=== PATIENT | female | born 1960 | race Caucasian/White ===

== ENCOUNTER 2022-08-27 17:11 | Inpatient (IN) | payer MEDICAID ==
[~2022-08-27] VITALS: Ht 157.5 cm; Wt 81.6 kg
[2022-08-27 17:36] VITALS: BP_SYST 146
--- NOTE | 2022-08-27 18:05 | NUR ---
Pt bib daughter from home CC High blood sugar. Pt c/o headache nausea and feeling unwell. Pt is fatigue. Pt denies Vomiting and diarrhea. Respirations even and unlabored. VSS, NAD, aaox4. skin intact. accucheck: HI greater than 600. Notified MD.
--- NOTE | 2022-08-27 18:52 | NUR ---
Collected urine sample and delivered to lab.
[2022-08-27 18:57] LABS: BASOPHILS % (AUTO) 0.3 % (0.0-2.0); EOSINOPHILS % (AUTO) 0.1 % (0.0-4.0); HEMATOCRIT 35.6 % (36-48); LYMPHOCYTES # (AUTO) 0.9 K/uL (1.0-5.5); LYMPHOCYTES % (AUTO) 11.6 % (20.5-51.5); MEAN CORPUSCULAR VOLUME 88 fL (79.0-98.0); MONOCYTES # (AUTO) 0.5 K/uL (0.0-1.0); MONOCYTES % (AUTO) 5.8 % (1.7-9.3); NEUTROPHILS # (AUTO) 6.6 K/uL (1.8-7.7); NEUTROPHILS % (AUTO) 82.2 % (40.0-70.0); PLATELET COUNT (AUTO) 286 K/uL (130-430); RED BLOOD CELL COUNT(AUTO) 4.03 MIL/uL (4.2-6.2); RED CELL DISTRIBUTION WIDTH 15.3 % (9.0-15.0)
[2022-08-27] MEDS ORDERED: NACL 0.9% 1,000 ML IV ONE (19:00)
--- NOTE | 2022-08-27 19:02 | NUR ---
accluiseck 520 Notified
[2022-08-27 19:17] LABS: CREATININE 1.15 mg/dL (0.55-1.30); POTASSIUM 5.4 mmol/L (3.5-5.1)
[2022-08-27 19:18] LABS: BILIRUBIN,URINE NEGATIVE (NEGATIVE); BLOOD, URINE NEGATIVE (NEGATIVE); CLARITY/URINE CLEAR (CLEAR); COLOR,URINE YELLOW (YELLOW); GLUCOSE,URINE 3+ (NEGATIVE); KETONES,URINE TRACE (NEGATIVE); LEUKOCYTE ESTERASE ,URINE NEGATIVE (NEGATIVE); NITRITE, URINE NEGATIVE (NEGATIVE); PROTEIN URINE NEGATIVE (NEGATIVE); UROBILINOGEN,URINE 0.2 (0.2-1.0)
[2022-08-27 19:20] LABS: TOTAL BILIRUBIN 0.4 mg/dL (0.0-1.0)
--- NOTE | 2022-08-27 19:24 | NUR ---
CRITICAL LAB VALUE: blood sugar 666 notified charge nurse Elin.
[2022-08-27] MEDS ORDERED: ACETAMINOPHEN 325 MG TABLET PO ONE (19:30)
[2022-08-27] MEDS ORDERED: NACL 0.9% 2,000 ML IV ONE ×2 (19:30→20:30)
[2022-08-27] MEDS ORDERED: ONDANSETRON HCL 4 MG/2 ML VIAL IVP ONE ×2 (19:30)
--- NOTE | 2022-08-27 19:30 | NUR ---
pt is currently in bed. daughter is at bedside. pt denies pain at this time pt is currently in stable condition RN will continue to round on pt
[2022-08-27 19:34] LABS: BACTERIA,URINE None Seen /HPF (None Seen); MUCUS,URINE None Seen /LPF (None Seen); RBC,URINE NONE SEEN /HPF (0-3); WBC,URINE 0-3 /HPF (0-3); YEAST,URINE Few /HPF (None Seen)
[2022-08-27] MEDS ORDERED: MECLIZINE HCL 25 MG TABLET (ANITVERT) PO ONE (19:45)
[2022-08-27 19:51] LABS: INR 0.9 (0.8-1.2)
[2022-08-27] MEDS ORDERED: INSULIN REGULAR, HUMAN 10 UNITS/0.1 ML, 3 ML VIAL IVP ONE (20:30)
[2022-08-27] MEDS ORDERED: CALCIUM GLUCONATE 1 GM/10 ML VIAL IVP ONE (20:30)
[2022-08-27] MEDS ORDERED: SODIUM POLYSTYRENE SULFONATE 15 GM/60 ML UDBTL PO ONE (20:30)
[2022-08-27] MEDS ORDERED: SODIUM BICARBONATE 8.4% JECT 50 MEQ/50 ML SYRINGE IVP ONE (20:30)
--- NOTE | 2022-08-27 20:59 | NUR ---
Admit bed requested Patient will be admitted to care of Admitted to Telemetry unit. Diagnosis Hyperkalemia, Uncontrolled DM Inpatient (Yes or No) yes Observation (Yes or No) no Orientation concerns or request close to nursing station (Yes or No) no Covid Status pending On vent or bipap no Isolation requirements no Needs a sitter no From Home (Yes or if No enter name of facility) yes Requires Dialysis (Yes or No) no Med Rec Completed (Yes of No) yes
[2022-08-27] MEDS ORDERED: ONDANSETRON HCL 4 MG/2 ML VIAL IVP PRN (21:00)
--- NOTE | 2022-08-27 21:02 | NUR ---
PER ED ADMITTING, RECEIVED VERBAL AUTH FOR ADMISSION. REQUESTED FAX OF [facility]. FAX: [phone] ATTN: [email or web address]
[2022-08-27] MEDS ORDERED: METF-380 PO (21:22)
[2022-08-27] MEDS ORDERED: ALBMDI INH (21:22)
--- NOTE | 2022-08-27 21:49 | NUR ---
AMBULATORY TO BATHROOM WITH STEADY GAIT W/ ASSISTANCE FROM DAUGHTER.
--- NOTE | 2022-08-27 21:51 | NUR ---
RETURNS BACK TO STRETCHER WITH STEADY GAIT.
--- NOTE | 2022-08-27 22:15 | NUR ---
ADMISSION NOTE Received patient from ER via gurney. Patient admitted with diagnosis of hyperkalemia, hyperglycemia. Patient oriented to hospital routine, call light, toileting and safety-patient verbalized understanding. Family at bedside.
--- NOTE | 2022-08-27 22:22 | NUR ---
Patient will be admitted to care of DR AGUILA. Admitted to TELE unit. Will go to room TELE 118. Belongings list completed. Complete and up to date summary report printed. SBAR report to be given to Courtney at bedside with opportunity for questions.
[2022-08-27 22:36] VITALS: BP_SYST 149
[2022-08-27] MEDS: MECLIZINE HCL 25 MG TABLET (ANITVERT) PO SCH (23:00)
[2022-08-27] MEDS ORDERED: FLU VACC QS2022-23(6MOS UP)/PF 0.5 ML/SYR SYRINGE I.M. PRN (23:00)
[2022-08-27] MEDS: NACL 0.9% 1,000 ML IV SCH (23:11)
--- NOTE | 2022-08-27 23:45 | NUR ---
Informed Dr. Tuttle of patient's latest blood sugar 366 as well as heart rate in 50s, down to 40 at times. Sinus bradycardia on monitor. Patient is asymptomatic. Received order for CBC, CMP, and hemoglobin A1c in the morning. Dr. Tuttle also stated not to give calcium gluconate, kayexalate, and sodium bicarbonate left over on eMAR from ER.
[2022-08-28] VITALS: BP_SYST 141
--- NOTE | 2022-08-28 | NUR ---
10 units regular insulin given for blood sugar 366
[2022-08-28] MEDS: INSULIN REGULAR, HUMAN 100 UNITS/ML, 3 ML VIAL (humuLIN R) SUBCUT PRN ×5 (03:30→21:55)
--- NOTE | 2022-08-28 03:45 | NUR ---
Patient ambulated with steady gait to bathroom. IV fluids infusing as ordered. Daughter at bedside. Blood sugar 204, 4 units regular insulin given with small snack. Patient's home inhaler collected in bag for pharmacy.
[2022-08-28] MEDS: NACL 0.9% 1,000 ML IV SCH ×2 (06:37→12:47)
[2022-08-28 08:00] VITALS: BP_SYST 127
[2022-08-28] MEDS ORDERED: ALBUTEROL SULFATE 0.083% 2.5 MG/3 ML VIAL.NEB INH PRN (08:00)
[2022-08-28] MEDS ORDERED: metFORMIN HCL 500 MG TABLET PO ONE (08:00)
[2022-08-28] MEDS: MECLIZINE HCL 25 MG TABLET (ANITVERT) PO SCH ×3 (09:44→21:46)
[2022-08-28 09:47] LABS: ALBUMIN 2.5 g/dL (3.4-4.8); CALCIUM 8.1 mg/dL (8.4-11.0); CREATININE 0.73 mg/dL (0.55-1.30); POTASSIUM 4.3 mmol/L (3.5-5.1); TOTAL BILIRUBIN 0.2 mg/dL (0.0-1.0)
[2022-08-28 13:40] LABS: BASOPHILS % (AUTO) 0.6 % (0.0-2.0); EOSINOPHILS # (AUTO) 0.1 K/uL (0.0-0.4); EOSINOPHILS % (AUTO) 1.4 % (0.0-4.0); HEMATOCRIT 33.3 % (36-48); LYMPHOCYTES # (AUTO) 2.5 K/uL (1.0-5.5); LYMPHOCYTES % (AUTO) 35.4 % (20.5-51.5); MEAN CORPUSCULAR VOLUME 88 fL (79.0-98.0); MONOCYTES # (AUTO) 0.5 K/uL (0.0-1.0); MONOCYTES % (AUTO) 7.1 % (1.7-9.3); NEUTROPHILS # (AUTO) 3.9 K/uL (1.8-7.7); NEUTROPHILS % (AUTO) 55.5 % (40.0-70.0); PLATELET COUNT (AUTO) 295 K/uL (130-430); RED BLOOD CELL COUNT(AUTO) 3.78 MIL/uL (4.2-6.2); RED CELL DISTRIBUTION WIDTH 15.3 % (9.0-15.0)
[2022-08-28] MEDS: metFORMIN HCL 500 MG TABLET PO SCH (17:38)
--- NOTE | 2022-08-28 20:10 | NUR ---
Received report from day shift. Patient resting in bed, unlabored breathing on room air. IV fluids infusing as ordered. Family at bedside. Call light in reach, bed low and locked.
[2022-08-28] MEDS: ACETAMINOPHEN 325 MG TABLET PO PRN (20:17)
[2022-08-28 20:21] VITALS: BP_SYST 131
[2022-08-29 01:00] VITALS: BP_SYST 136
[2022-08-29] MEDS: NACL 0.9% 1,000 ML IV SCH ×2 (03:12→12:24)
[2022-08-29] MEDS: metFORMIN HCL 500 MG TABLET PO SCH ×2 (06:40→16:58)
[2022-08-29] MEDS: INSULIN REGULAR, HUMAN 100 UNITS/ML, 3 ML VIAL (humuLIN R) SUBCUT PRN ×3 (06:50→17:00)
[2022-08-29] MEDS: ACETAMINOPHEN 325 MG TABLET PO PRN (06:59)
[2022-08-29 07:14] LABS: BASOPHILS % (AUTO) 0.6 % (0.0-2.0); EOSINOPHILS # (AUTO) 0.1 K/uL (0.0-0.4); EOSINOPHILS % (AUTO) 1.2 % (0.0-4.0); HEMATOCRIT 36.7 % (36-48); LYMPHOCYTES # (AUTO) 2.2 K/uL (1.0-5.5); LYMPHOCYTES % (AUTO) 31.1 % (20.5-51.5); MEAN CORPUSCULAR VOLUME 88 fL (79.0-98.0); MONOCYTES # (AUTO) 0.5 K/uL (0.0-1.0); MONOCYTES % (AUTO) 7.2 % (1.7-9.3); NEUTROPHILS # (AUTO) 4.2 K/uL (1.8-7.7); NEUTROPHILS % (AUTO) 59.9 % (40.0-70.0); PLATELET COUNT (AUTO) 292 K/uL (130-430); RED BLOOD CELL COUNT(AUTO) 4.15 MIL/uL (4.2-6.2); RED CELL DISTRIBUTION WIDTH 15.3 % (9.0-15.0)
--- NOTE | 2022-08-29 07:49 | NUR ---
Closing Patient resting in bed, unlabored breathing on room air. Ambulatory with standy assist to bathroom. Denies dizziness. Family at bedside. IV fluids infusing as ordered. Blood sugar 217 this morning, 4 units of insulin given. Tylenol PRN also given for headache. Call light in reach, bed low and locked.
[2022-08-29 08:00] VITALS: BP_SYST 147
[2022-08-29 08:31] LABS: ALBUMIN 2.6 g/dL (3.4-4.8); CALCIUM 8.5 mg/dL (8.4-11.0); CREATININE 0.82 mg/dL (0.55-1.30); FREE T4 (FREE THYROXINE) 1.3 ng/dl (0.8-1.5); POTASSIUM 4.6 mmol/L (3.5-5.1); THYROID STIMULATING HORMONE 1.35 uIu/mL (0.36-3.74); TOTAL BILIRUBIN 0.3 mg/dL (0.0-1.0)
[2022-08-29] MEDS: MECLIZINE HCL 25 MG TABLET (ANITVERT) PO SCH ×2 (09:13→15:45)
[2022-08-29 12:00] VITALS: BP_SYST 135
[2022-08-29 16:00] VITALS: BP_SYST 132
[2022-08-29] MEDS ORDERED: METF-380 PO (17:12)
[2022-08-29] MEDS ORDERED: LINA5TAB2 PO (17:13)
[2022-08-29 17:45] VITALS: BP_SYST 132
--- NOTE | 2022-08-29 18:19 | NUR ---
PATIENT STABLE FOR DISCHARGE. IV DISCONTINUED. DISCHARGE INSTRUCTIONS WITH PRESCRIPTION AND PLAN OF CARE DISCUSSED WITH PATIENT AND FAMILY. PATIENT AND FAMILY VERBALIZED UNDERSTANDING. PATIENT DISCHARGED HOME ORDERED. Lynda FELIX RN.
== END 2022-08-29 18:19 | disposition home or self-care (01) | DRG 425 ==
LOC: SED 17:11 → STU 20:49
PROVIDERS: ADMIT Internal Medicine; ATTEND Internal Medicine
DX: E87.5 Hyperkalemia (principal); E44.1 Mild protein-calorie malnutrition; E11.65 Type 2 diabetes mellitus with hyperglycemia; B34.9 Viral infection, unspecified; D64.9 Anemia, unspecified; E66.9 Obesity, unspecified; Z20.822 Contact with and (suspected) exposure to COVID-19; J45.909 Unspecified asthma, uncomplicated; M19.90 Unspecified osteoarthritis, unspecified site; Z98.891 History of uterine scar from previous surgery; Z68.32 Body mass index [BMI] 32.0-32.9, adult
CPT/HCPCS: 36415; 70450-TC; 71045; 76376; 80053; 80061; 81000; 82962; 83036; 83605; 84439; 84443; 84484; 85025; 85610-TC; 85730-TC; 87040; 87086; 93005; 96361; 96374; 99285; G0378; J0610; J1815; J2405; J8597